=== PATIENT | female | born 1955 | race Caucasian/White ===

== ENCOUNTER 2022-02-13 08:01 | Day surgery (SDC) | payer OTHER ==
[2022-02-11 15:17] VITALS: BMI 42.5
[2022-02-13 08:41] VITALS: RESP 18
[2022-02-13] MEDS ORDERED: MIDAZOLAM HCL 2 MG/2 ML SINGLE DOSE VIAL ONE (09:20)
[2022-02-13] MEDS ORDERED: PROPOFOL 20 ML ONE (09:41)
[2022-02-13] MEDS ORDERED: DEXAMETHASONE SOD PHOSPHATE 4 MG/1 ML VIAL ONE (09:50)
[2022-02-13] MEDS ORDERED: ONDANSETRON 4 MG/2 ML VIAL ONE (09:50)
[2022-02-13 10:17] VITALS: PULSE 74; TEMP 97.2
[2022-02-13 10:46] VITALS: BP 130/64
== END 2022-02-13 10:50 | disposition home or self-care (01) ==
LOC: FASU 08:01
PROVIDERS: ATTEND Orthopaedic Surgery Hand Surgery
PROC: 0JCJ0ZZ Extirpation of Matter from Right Hand Subcutaneous Tissue and Fascia, Open Approach (ICD-10-PCS; principal; 2022-02-13 09:49)
DX: M79.5 Residual foreign body in soft tissue (principal)
CPT/HCPCS: 88300-TC